=== PATIENT | female | born 1985 | race Two or more races ===

== ENCOUNTER → 2016-10-01 | Outpatient (CLI) | payer OTHER ==
--- NOTE | 2016-10-01 16:28 | KCIC ---
CT scan paranasal sinuses without contrast 10/01/2016 CLINICAL HISTORY: Recurrent sinusitis. TECHNIQUE: Contiguous, 0.6 mm axial sections were obtained through the paranasal sinuses. A 1 mm reconstructed sagittal, axial and coronal images were obtained. One or more of the following individualized dose reduction techniques were utilized for this study: 1. Automated exposure control. 2. Adjustment of the mA and/or kV according to patient size. 3. Use of iterative reconstruction technique. FINDINGS: Very mild mucosal thickening is seen involving both maxillary sinuses and scattered throughout the ethmoid air cells bilaterally. The frontal sinuses and sphenoid sinuses are well aerated and are clear. No air-fluid level is seen. The mastoid air cells and middle ear cavities are well aerated and are clear. The ostiomeatal units are patent bilaterally. IMPRESSION: Very mild mucosal thickening is seen involving both maxillary sinuses and scattered throughout the ethmoid air cells. The remaining paranasal sinuses are clear. No air-fluid level is seen. Electronically signed by: Surinder Hook MD (10/01/2016 4:25 PM) [id number]
== END | disposition home or self-care (01) ==
LOC: KCIC CT 15:31
PROVIDERS: ATTEND Otolaryngology
DX: J32.8 Other chronic sinusitis (principal)
CPT/HCPCS: 70486

== ENCOUNTER → 2017-12-14 | Outpatient (CLI) | payer OTHER ==
--- NOTE | 2017-12-14 14:23 | KCIC ---
Thyroid ultrasound HISTORY: Mass of the left neck and thyroid. Right thyroid: * 1.8 cm x 4.5 cm x 0.9 cm. * Homogeneous echotexture without focal lesion Isthmus: * 2 mm Left thyroid: * 1.6 cm x 3.6 cm x 0.8 cm * Homogeneous echotexture, no focal lesion. * Scanning in the area of the lump demonstrates a small lymph node with a benign morphology. Measures 8 mm x 3 mm x 7 mm. IMPRESSION: 1. Unremarkable thyroid ultrasound. 2. Small benign-appearing lymph node identified in left neck at the area of concern. Electronically signed by: Roosevelt Richardson MD (12/14/2017 2:20 PM) [facility]
== END | disposition home or self-care (01) ==
LOC: KCIC US 11:41
PROVIDERS: ATTEND Otolaryngology
DX: E04.1 Nontoxic single thyroid nodule (principal)
CPT/HCPCS: 76536